=== PATIENT | male | born 1945 | race Caucasian/White ===

== ENCOUNTER 2025-01-23 16:44 | Emergency (ER) | payer OTHER ==
[~2025-01-23] VITALS: Ht 172.7 cm; Wt 93.4 kg
[2025-01-23 16:45] VITALS: TEMP 98.3
--- NOTE | 2025-01-23 17:33 | ERN ---
General Chief Complaint: Hip Pain/Injury Stated Complaint: HIP PAIN Time Seen by MD: 16:47 Source: patient, EMS History of Present Illness Initial Comments Patient is a 79-year-old male with a history of hearing decreased coming in complaining of left hip pain. Per patient he was seen by his PCP and sent over for further evaluation. Patient has been having left hip pain for one month. Allergies: Coded Allergies: No Known Allergies (Unverified Allergy, Unknown, 01/23/25) Past Medical History Past Medical History: Anemia, High Cholesterol, Hypertension, Hypothyroid Past Surgical History: None ROS Dictation CONSTITUTIONAL: No chills, no fever, no weakness, no diaphoresis, no malaise. HEAD/FACE: No signs of trauma. EENT: No eye pain, no blurred vision, no tearing, no double vision, no ear pain, no ear discharge, no nose pain, no nasal congestion, no throat pain, no throat swelling, no mouth pain. RESPIRATORY: No cough, no orthopnea, no SOB, no stridor, no wheezing. CARDIOVASCULAR: No chest pain, no edema, no palpitations, no syncope. GASTROINTESTINAL/ABDOMINAL: No abdominal pain, no constipation, no diarrhea, no nausea, no vomiting. GENITOURINARY: No abnormal discharge, no dysuria, no frequent urination, no hematuria. No complaints of pain in the genitals. MUSCULOSKELETAL: No back pain, no gout, joint pain, no joint swelling, muscle pain, no muscle stiffness, no neck pain. INTEGUMENTARY: No change in color, no change in hair/nails, no dryness, no lesion, no lumps, no rash. NEUROLOGICAL/PSYCH: No anxiety, not depressed, no emotional problem, no headache, no numbness, no pre-existing deficit, no history of seizures, no tremors, no weakness. HEMATOLOGIC/LYMPHATIC: Not anemic, no history of blood clots, no apparent bleeding, no bruising, glands not swollen. All Systems Negative, Except as Noted. Physical Exam Physical Exam Dictation VITAL SIGNS: Reviewed. GENERAL APPEARANCE: Alert, oriented x3, no acute distress, obese. HEAD AND FACE: Non-traumatic. EYES: PERRL, pink conjunctivas, eyelid no trauma, anterior chamber clear. EARS: Pinnas intact and no signs of trauma or erythema. Ear canals clear and no discharge. TMs no erythema. NOSE: No discharge, no bleeding. OROPHARYNX: Mouth normal, teeth no caries, tongue pink. Pharynx clear, no erythema. Tonsils no exudates, no abscesses noted. Mucous membrane moist. NECK: Supple, non-tender, no thyromegaly, no masses, no JVD, no bruits. BREAST: Deferred. CHEST: No tenderness, no crepitus, no paradoxical movement, no retractions. LUNGS: Clear, well-ventilated, symmetric, no rales, no wheezing, no rhonchi, no stridor, good breath sounds bilaterally. HEART: Regular rate, regular rhythm, no murmur, no gallops. VASCULAR: No peripheral edema. ABDOMEN: Soft, positive bowel sounds, nondistended, no guarding, nontender, no rebound, no masses no hepatomegaly, no splenomegaly, no Purdy's sign, no hernias. RECTAL: Deferred. GENITAL: Deferred. NEUROLOGICAL: Normal speech, gross motor function intact, gross sensory function intact. MUSCULOSKELETAL: Neck nontender, full range of motion, back nontender, full range of motion. EXTREMITIES: Nontender, full range of motion. Left hip pain on palpation SKIN: Color pink, dry, no turgor, no rash, no lacerations, no abrasions, no contusions. LYMPHATICS: Deferred. Results Laboratory and Microbiology Labs Reviewed?: Yes EKG/XRAY/US/CT/MRI CT Scan Comment [address] [address] IMAGING REPORT Signed PATIENT: CECELIA CAZARES MR#: [id number] : 1945 SEX: M AGE: 79 LOCATION: [facility] ORDER 50 STATUS: [facility] REPORT#: [id number] SERVICE 49 REASON: left hip pain ORDERING PHYSICIAN: CALOS PRESLEY MD PROCEDURE: PELVIS WO - CT PELVIS W/O CONTRAST EXAM: CT Pelvis, without IV contrast CLINICAL HISTORY: 79 year old male with left hip pain TECHNIQUE: Axial images were acquired through the pelvis without IV contrast. Reformatted images were reviewed. Dose reduction technique was used including one or more of the following: automated exposure control, adjustment of mA and kV according to patient size, and/or iterative reconstruction. CONTRAST: NONE. COMPARISON: None provided. FINDINGS: BONES: No acute fracture or focal osseous lesion. JOINTS: No dislocation. The joint spaces are normal. SOFT TISSUES: The soft tissues are unremarkable. STOMACH AND BOWEL: A large amount of stool is present in the colon. REPRODUCTIVE: Prostate calcification is seen with mild prostate enlargement. IMPRESSION: 1. No acute osseous abnormality related to left hip pain. 2. Large amount of stool in the colon. /[place] DICTATED BY: TALIB SANTIZO MD DATE: 01/23/251909 ELECTRONICALLY SIGNED BY: TALIB SANTIZO MD DATE: 01/23/251909 MDM MDM: Differential diagnosis: Pain, chronic hip pain, constipation, Rationale: Tests considered and ordered secondary to shared decision making include: Previous outside records reviewed: Old ER visits. Risk of complication and/or morbidity or mortality of patient management: None Medications-Per medication reconciliation Need for hospitalization: Patient does not meet criteria for hospitalization. Need for emergency major/minor surgery: No Patient is a 79-year-old gentleman coming in complaining of left hip pain. CT did not disclose acute findings but a large stool burden. Patient will be discharged in stable condition with a diagnosis of constipation a chronic hip pain. ED Course Orders Procedure Category Date Status Time Ct Pelvis W/O Contrast CT 01/23/25 Resulted 16:50 Vital Signs Date Time Temp Pulse Resp B/P (MAP) Pulse Ox O2 Delivery O2 Flow Rate FiO2 01/23/25 16:45 98.2 58 20 138/57 98 Room Air 0 DX & DISP Disposition: Discharge Departure Impression: Primary Impression: Chronic hip pain Additional Impression: Constipation Condition: Stable Scripts Lactulose (Lactulose) 10 Gram/15 Ml Solution 30 ML PO BID for constipation, #500 ML 0 Refills Prov: CALOS PRESLEY MD 01/23/25 Additional Instructions: FOLLOW-UP WITH PRIMARY CARE PROVIDER IN 1 TO 2 DAYS. TAKE MEDICATIONS DIRECTED HERE IN THE EMERGENCY ROOM. OKAY TO CONTINUE HOME MEDICATIONS UNLESS OTHERWISE DISCUSSED DURING YOUR VISIT IN THE EMERGENCY ROOM TODAY. RETURN TO YOUR NEAREST EMERGENCY ROOM IF SYMPTOMS WORSEN OR IF THERE IS NO IMPROVEMENT. CALL 911 IF YOU NEED IMMEDIATE ASSISTANCE. TAKE TYLENOL [id number] NEEDED AND IF NO CONTRAINDICATIONS ARE PRESENT. INCREASE ORAL HYDRATION. A WOUND CULTURE OR URINE CULTURE WAS ORDERED HERE IN THE EMERGENCY ROOM DEPARTMENT PLEASE FOLLOW-UP WITH PRIMARY CARE PROVIDER AND ADVISE THEM TO GET REPORTS FROM OUR FACILITY. IF YOU HAD ANY ARIAS WRAP/SPLINTS THAT WERE APPLIED HERE, PLEASE DO NOT REMOVE THEM UNTIL YOU SEE YOUR PRIMARY CARE OR SPECIALTY. Referrals: Referrals: SELF,REFERRAL (PCP) POONAM RENDON MD Time of Disposition: 18:43 CALOS PRESLEY MD Jan 23, 2025 17:33
--- NOTE | 2025-01-23 18:11 | HMCIMG ---
EXAM: CT Pelvis, without IV contrast CLINICAL HISTORY: 79 year old male with left hip pain TECHNIQUE: Axial images were acquired through the pelvis without IV contrast. Reformatted images were reviewed. Dose reduction technique was used including one or more of the following: automated exposure control, adjustment of mA and kV according to patient size, and/or iterative reconstruction. CONTRAST: NONE. COMPARISON: None provided. FINDINGS: BONES: No acute fracture or focal osseous lesion. JOINTS: No dislocation. The joint spaces are normal. SOFT TISSUES: The soft tissues are unremarkable. STOMACH AND BOWEL: A large amount of stool is present in the colon. REPRODUCTIVE: Prostate calcification is seen with mild prostate enlargement. IMPRESSION: 1. No acute osseous abnormality related to left hip pain. 2. Large amount of stool in the colon. /[place]
[2025-01-23] MEDS ORDERED: LACT-441 PO (18:44)
[2025-01-23 20:00] VITALS: BP 140/72; PULSE 74; RESP 17; O2SAT 98
--- NOTE | 2025-01-23 20:36 | NUR ---
ATTEMPTED TO CALL [facility] TO COORDINATE TRANSPORT, NO ANSWER.
--- NOTE | 2025-01-23 21:16 | NUR ---
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
== END 2025-01-23 21:30 | disposition home or self-care (01) ==
LOC: EDH 16:44
DX: G89.29 Other chronic pain (principal); M25.552 Pain in left hip; K59.00 Constipation, unspecified; E03.9 Hypothyroidism, unspecified; E78.00 Pure hypercholesterolemia, unspecified; I10 Essential (primary) hypertension
CPT/HCPCS: 72192; 99284